=== PATIENT | female | born 1965 | race Caucasian/White ===

== ENCOUNTER 2016-09-05 01:30 | Emergency (ER) | payer SELFPAY ==
[~2016-09-05] VITALS: Ht 167.6 cm; Wt 52.3 kg
[2016-09-05 01:31] VITALS: BP 131/81
[2016-09-05] MEDS ORDERED: LIDOCAINE 1%, 20ML SQ ONE (02:00)
[2016-09-05] MEDS ORDERED: ONDANSETRON ODT 4 MG PO ONE (02:00)
[2016-09-05] MEDS ORDERED: OXYcodone/APAP 5/325MG TABLET PO ONE (02:00)
[2016-09-05] MEDS ORDERED: OXYcodone/APAP 5/325MG TABLET ONE (02:13)
[2016-09-05] MEDS ORDERED: LIDOCAINE 1%, 20ML ONE (02:13)
[2016-09-05] MEDS ORDERED: ONDANSETRON ODT 4 MG ONE (02:13)
[2016-09-05] MEDS ORDERED: LORazepam 1MG TABLET PO ONE (03:00)
== END 2016-09-05 02:56 | disposition home or self-care (01) ==
LOC: ED 02:07
DX: L98.9 Disorder of the skin and subcutaneous tissue, unspecified (principal); F19.10 Other psychoactive substance abuse, uncomplicated
CPT/HCPCS: 99283; J3490; Q0162

== ENCOUNTER 2018-04-26 11:33 | Emergency (ER) | payer SELFPAY ==
[~2018-04-26] VITALS: Ht 167.6 cm; Wt 52.0 kg
[2018-04-26 11:43] VITALS: BP 124/73
[2018-04-26 12:13] LABS: BASOPHILS # (AUTO) 0.02 x10^3/uL (0-0.1); BASOPHILS % (AUTO) 0 % (0-1); EOSINOPHILS # (AUTO) 0.05 x10^3/uL (0-0.4); EOSINOPHILS % (AUTO) 1 % (1-7); LYMPHOCYTES # (AUTO) 1.09 x10^3/uL (1-3.4); LYMPHOCYTES % (AUTO) 14 % (22-44); MD NO; MEAN CORPUSCULAR HEMOGLOBIN 29.9 pg (27.0-34.8); MEAN CORPUSCULAR HGB CONC 32.4 g/dL (32.4-35.8); MEAN CORPUSCULAR VOLUME 92.2 fL (80-100); MEAN PLATELET VOLUME 8.9 fL (7.4-10.4); MONOCYTES # (AUTO) 0.61 x10^3/uL (0.2-0.8); MONOCYTES % (AUTO) 8 % (2-9); NEUTROPHILS # (AUTO) 6.05 x10^3/uL (1.8-6.8); NEUTROPHILS % (AUTO) 77 % (42-75); PLATELET COUNT 215 x10^3/uL (130-400); RED BLOOD COUNT 4.66 x10^6/uL (3.82-5.3); RED CELL DISTRIBUTION WIDTH 13.6 % (9.6-15.2)
[2018-04-26 12:14] LABS: MICROSCOPIC AUTO
[2018-04-26 12:18] LABS: CULTURE INDICATED? YES
[2018-04-26 12:25] LABS: ALBUMIN 3.9 g/dL (3.4-5.0); ANION GAP 3 mmol/L (5-15); CALCIUM 8.9 mg/dL (8.5-10.1); CHLORIDE 105 mmol/L (98-107); CREATININE 1.03 mg/dL (0.55-1.02)
--- NOTE | 2018-04-26 13:42 | NUR ---
ROOM SERVICE MANAGER: CALLED FOR ROOM, NO ANSWER
--- NOTE | 2018-04-26 14:01 | NUR ---
BOX STRAPPER: CALLED FOR ROOM, NO ANSWER
--- NOTE | 2018-04-26 14:12 | NUR ---
THIRD CALL FOR ROOM, NO ANSWER.
== END 2018-04-26 14:14 | disposition left against medical advice (07) ==
LOC: ED 14:08
DX: N39.0 Urinary tract infection, site not specified (principal)
CPT/HCPCS: 36415; 80048; 81001; 82040; 84703; 85025; 87086; 99283